=== PATIENT | male | born 1955 | race Caucasian/White ===

== ENCOUNTER 2020-07-21 14:21 | Observation (INO) ==
[2020-07-21] MEDS ORDERED: Morphine Sulfate 2 MG/ML SYRINGE IVP STA (14:52)
[2020-07-21] MEDS ORDERED: Isovue-370 500 ML BOTTLE IVP ONE (14:53)
[2020-07-21 15:37] LABS: Basophils # 0.1 K/mcL (0.0-0.2); Basophils % 0.4 %; Eosinophils % 0.1 %; Hematocrit 43.2 % (37.5-50.1); Hemoglobin 14.2 g/dL (12.9-16.9); Immature Granulocytes % 1.4 % (0-4); Lymphocytes # 0.4 K/mcL (0.6-4.6); Lymphocytes % 3.2 %; Mean Corpuscular HGB Conc 32.9 g/dL (31.6-35.5); Mean Corpuscular Hemoglobin 30.4 pg (28.0-33.3); Mean Corpuscular Volume 92.5 fL (83.0-100.0); Mean Platelet Volume 9.4 fL (9.4-12.4); Monocytes # 0.3 K/mcL (0.0-1.3); Monocytes % 1.8 %; Neutrophils # 12.7 K/mcL (1.6-8.9); Platelet Count 208 K/mcL (140-400); Red Blood Count 4.67 M/mcL (4.19-5.50); Red Cell Distribution Width 13.2 % (11.5-14.5); Segmented Neutrophils % 93.1 %; White Blood Count 13.7 K/mcL (4.3-11.1)
[2020-07-21 15:38] LABS: VBG Ionized Calcium 0.86 mmol/L (1.15-1.35)
[2020-07-21 15:40] LABS: INR 0.9; Prothrombin Time 10.7 Seconds (9.4-12.1)
[2020-07-21 15:49] LABS: Bilirubin,Urine Negative (Negative); Blood,Urine Negative (Negative); Clarity,Urine Clear (Clear); Color,Urine Colorless (Yellow); Glucose,Urine (UA) >=1000 mg/dL (Normal); Ketones,Urine Negative (Negative); Leukocyte Esterase,Urine Negative (Negative); Nitrite,Urine Negative (Negative); PH,Urine 6.5 pH Units (5.0-8.0); Protein,Urine Negative (Neg-Trace); RBC,Urine 0-3 per hpf (0-3); Specific Gravity,Urine 1.022 (1.010-1.025); Urobilinogen,Urine Normal (Normal); WBC,Urine 0-3 per hpf (0-3)
[2020-07-21 15:58] LABS: Troponin I < 0.03 ng/mL (< 0.04)
[2020-07-21 16:09] LABS: Thyroid Stimulating Hormone 0.856 mcIU/mL (0.340-5.600)
[2020-07-21 16:18] LABS: Alanine Aminotransferase 13 Units/L (7-52); Albumin 3.8 g/dL (3.5-5.7); Albumin/Globulin Ratio 1.5 (1.1-2.2); Alkaline Phosphatase 54 Units/L (34-104); Aspartate Amino Transferase 19 Units/L (13-39); BUN/Creatinine Ratio 20 (6-26); Bilirubin,Total 0.5 mg/dL (0.3-1.0); Blood Urea Nitrogen 19 mg/dL (8-23); Calcium 8.8 mg/dL (8.6-10.3); Carbon Dioxide 19 mEq/L (23-29); Chloride 97 mEq/L (98-107); Creatine Kinase 41 Units/L (30-223); Globulin 2.6 g/dL (2.4-3.5); Glucose 501 mg/dL (70-105); Magnesium 1.9 mg/dL (1.6-2.6); Osmolality,Calculated 291 (280-300); Phosphorous 2.6 mg/dL (2.7-4.5); Potassium 4.8 mEq/L (3.5-5.1); Sodium 128 mEq/L (136-145); Total Protein 6.4 g/dL (6.4-8.9); eGFR For African Americans > 60 (> 60); eGFR For Non-African Americans > 60 (> 60)
[2020-07-21] MEDS ORDERED: Insulin Regular, Human 100 UNIT/ML SUBQ ONE (16:20)
[2020-07-21] MEDS ORDERED: Aspirin 81 MG TAB.CHEW PO ONE (17:15)
[2020-07-21] MEDS: Calcium Gluconate 1gm/50mL 1 GM/50 ML BAG IVPB SCH ×2 (17:25→23:25)
[2020-07-21] MEDS ORDERED: Naloxone 0.4 MG/ML INJ IVP PRN (21:03)
[2020-07-21] MEDS ORDERED: Dextrose Gel 15 GM/37.5 ML TUBE PO PRN ×2 (21:03)
[2020-07-21] MEDS ORDERED: *HR* Dextrose 50 % in Water (Vial) 50 ML VIAL IVP PRN (21:03)
[2020-07-21] MEDS ORDERED: D5% in Water 1,000 ML IVC PRN (21:03)
[2020-07-21] MEDS ORDERED: Ondansetron 4 MG/2 ML VIAL IVP PRN (21:03)
[2020-07-21] MEDS ORDERED: Perflutren Lipid Microsphere 1.3 ML in 0.9 % Sodium Chloride 8.7 ML IVP PRN (21:50)
[2020-07-21] MEDS ORDERED: *HR* Heparin 5,000 UNIT/ML VIAL IVP ONE (22:22)
[2020-07-21] MEDS ORDERED: *HR* Heparin 5,000 UNIT/ML VIAL IVP PRN ×2 (22:22)
[2020-07-21] MEDS: rOPINIRole 1 MG TABLET PO SCH (22:42)
[2020-07-21] MEDS: Morphine Sulfate 2 MG/ML SYRINGE IVP PRN (22:45)
[2020-07-21] MEDS: 0.9 % Sodium Chloride 1,000 ML IVC SCH (22:46)
[2020-07-21] MEDS: Insulin LISPRO 300 UNITS/3 ML VIAL SUBQ SCH (22:52)
[2020-07-21 23:00] LABS: Activated Partial Thrombo Time 25.4 Seconds (26.0-36.0); Heparin anti-factor XA UFH < 0.04 IU/mL (0.30-0.70)
[2020-07-21] MEDS: Heparin 25,000UNIT/250ML 1/2NS 25,000 UNIT/250 ML IV.SOLN IVC SCH (23:01)
[2020-07-22] MEDS: Nicotine 14 MG PATCH.TD24 TD SCH ×2 (02:22→13:59)
[2020-07-22] MEDS: Insulin LISPRO 300 UNITS/3 ML VIAL SUBQ SCH ×4 (04:16→16:52)
[2020-07-22 05:16] LABS: Hematocrit 40.5 % (37.5-50.1); Hemoglobin 13.6 g/dL (12.9-16.9); Mean Corpuscular HGB Conc 33.6 g/dL (31.6-35.5); Mean Corpuscular Hemoglobin 30.6 pg (28.0-33.3); Mean Corpuscular Volume 91.2 fL (83.0-100.0); Mean Platelet Volume 9.4 fL (9.4-12.4); Platelet Count 231 K/mcL (140-400); Red Blood Count 4.44 M/mcL (4.19-5.50); Red Cell Distribution Width 13.3 % (11.5-14.5); White Blood Count 13.7 K/mcL (4.3-11.1)
[2020-07-22 05:29] LABS: Carbon Dioxide 29 mEq/L (23-29); Chloride 99 mEq/L (98-107); Glucose 208 mg/dL (70-105); Potassium 4.6 mEq/L (3.5-5.1); Sodium 133 mEq/L (136-145); eGFR For African Americans > 60 (> 60); eGFR For Non-African Americans > 60 (> 60)
[2020-07-22 05:38] LABS: BUN/Creatinine Ratio 20 (6-26); Blood Urea Nitrogen 19 mg/dL (8-23); Osmolality,Calculated 284 (280-300)
[2020-07-22] MEDS: Morphine Sulfate 2 MG/ML SYRINGE IVP PRN ×3 (06:15→20:21)
[2020-07-22] MEDS ORDERED: Isosorbide MONOnitrate (24 HR) 30 MG TAB.ER.24H PO SCH (09:00)
[2020-07-22] MEDS: rOPINIRole 1 MG TABLET PO SCH ×4 (10:14→20:22)
[2020-07-22] MEDS: Aspirin Enteric Coated 81 MG Tablet PO SCH (10:15)
[2020-07-22] MEDS: Metoprolol XL (24 HR) Succ 25 MG TAB.ER.24H PO SCH (10:15)
[2020-07-22] MEDS: 0.9 % Sodium Chloride 1,000 ML IVC SCH (12:14)
[2020-07-22] MEDS ORDERED: Isosorbide MONOnitrate (24 HR) 30 MG TAB.ER.24H PO ONE (14:54)
[2020-07-22] MEDS: Gabapentin 300 MG CAPSULE PO SCH (20:22)
[2020-07-22] MEDS: Ipratropium/Albuterol Neb 3 ML IH PRN (20:41)
[2020-07-23] MEDS: Heparin 25,000UNIT/250ML 1/2NS 25,000 UNIT/250 ML IV.SOLN IVC SCH (00:07)
[2020-07-23] MEDS: Morphine Sulfate 2 MG/ML SYRINGE IVP PRN (00:19)
[2020-07-23] MEDS: Ipratropium/Albuterol Neb 3 ML IH PRN (01:52)
[2020-07-23] MEDS: Nitroglycerin 0.4 MG TAB.SUBL SL PRN ×2 (05:13→05:23)
[2020-07-23 05:48] LABS: Basophils % 0.2 %; Eosinophils # 0.1 K/mcL (0.0-0.6); Eosinophils % 0.6 %; Hematocrit 40.5 % (37.5-50.1); Hemoglobin 13.3 g/dL (12.9-16.9); Immature Granulocytes % 0.8 % (0-4); Lymphocytes # 1.5 K/mcL (0.6-4.6); Lymphocytes % 11.4 %; Mean Corpuscular HGB Conc 32.8 g/dL (31.6-35.5); Mean Corpuscular Hemoglobin 30.4 pg (28.0-33.3); Mean Corpuscular Volume 92.7 fL (83.0-100.0); Mean Platelet Volume 9.5 fL (9.4-12.4); Monocytes # 0.7 K/mcL (0.0-1.3); Monocytes % 5.2 %; Platelet Count 225 K/mcL (140-400); Red Blood Count 4.37 M/mcL (4.19-5.50); Red Cell Distribution Width 13.3 % (11.5-14.5); Segmented Neutrophils % 81.8 %; White Blood Count 13.4 K/mcL (4.3-11.1)
[2020-07-23 06:42] LABS: BUN/Creatinine Ratio 22 (6-26); Blood Urea Nitrogen 21 mg/dL (8-23); Calcium 8.7 mg/dL (8.6-10.3); Carbon Dioxide 27 mEq/L (23-29); Chloride 102 mEq/L (98-107); Glucose 220 mg/dL (70-105); Osmolality,Calculated 290 (280-300); Potassium 4.4 mEq/L (3.5-5.1); Sodium 135 mEq/L (136-145); eGFR For African Americans > 60 (> 60); eGFR For Non-African Americans > 60 (> 60)
[2020-07-23] MEDS: Gabapentin 300 MG CAPSULE PO SCH ×3 (07:32→21:36)
[2020-07-23] MEDS: Isosorbide MONOnitrate (24 HR) 60 MG TAB.ER.24H PO SCH (07:32)
[2020-07-23] MEDS: Metoprolol XL (24 HR) Succ 25 MG TAB.ER.24H PO SCH (07:32)
[2020-07-23] MEDS: Cyanocobalamin (B-12) 1,000 MCG TABLET PO SCH (07:32)
[2020-07-23] MEDS: rOPINIRole 1 MG TABLET PO SCH ×4 (07:32→21:36)
[2020-07-23] MEDS: Aspirin Enteric Coated 81 MG Tablet PO SCH (07:32)
[2020-07-23] MEDS: Insulin LISPRO 300 UNITS/3 ML VIAL SUBQ SCH ×3 (07:32→16:16)
[2020-07-23] MEDS: lisinopriL 10 MG TABLET PO SCH (07:32)
[2020-07-23 11:09] LABS: Adenovirus Not Detected (Not Detect); Bordetella Pertussis Not Detected (Not Detect); Chlamydophila pneumoniae Not Detected (Not Detect); Coronavirus 229E Not Detected (Not Detect); Coronavirus HKU1 Not Detected (Not Detect); Coronavirus NL63 Not Detected (Not Detect); Coronavirus OC43 Not Detected (Not Detect); Human Metapneumovirus Not Detected (Not Detect); Human Rhinovirus/Enterovirus Not Detected (Not Detect); Influenza A Subtype 2009 H1 Not Detected (Not Detect); Influenza B Not Detected (Not Detect); Mycoplasma pneumoniae Not Detected (Not Detect); Parainfluenza Virus 1 Not Detected (Not Detect); Parainfluenza Virus 2 Not Detected (Not Detect); Parainfluenza Virus 3 Not Detected (Not Detect); Parainfluenza Virus 4 Not Detected (Not Detect); Respiratory Syncytial Virus Not Detected (Not Detect)
[2020-07-23] MEDS ORDERED: *HR* Enoxaparin 40 MG/0.4 ML SYRINGE SQ ONE (12:27)
[2020-07-23] MEDS: Nicotine 14 MG PATCH.TD24 TD SCH (12:58)
[2020-07-23] MEDS ORDERED: Insulin LISPRO 300 UNITS/3 ML VIAL SUBQ SCH (21:15)
[2020-07-24] MEDS ORDERED: *HR* Enoxaparin 40 MG/0.4 ML SYRINGE SQ SCH (06:00)
[2020-07-24] MEDS ORDERED: Regadenoson 0.4 MG/5 ML SYRINGE IVP ONE (06:24)
[2020-07-24] MEDS: Insulin LISPRO 300 UNITS/3 ML VIAL SUBQ SCH ×2 (09:17→11:22)
[2020-07-24] MEDS: Isosorbide MONOnitrate (24 HR) 60 MG TAB.ER.24H PO SCH (09:25)
[2020-07-24] MEDS: rOPINIRole 1 MG TABLET PO SCH (09:25)
[2020-07-24] MEDS: Metoprolol XL (24 HR) Succ 25 MG TAB.ER.24H PO SCH (09:25)
[2020-07-24] MEDS: lisinopriL 10 MG TABLET PO SCH (09:25)
[2020-07-24] MEDS: Gabapentin 300 MG CAPSULE PO SCH (09:25)
[2020-07-24] MEDS: Cyanocobalamin (B-12) 1,000 MCG TABLET PO SCH (09:25)
[2020-07-24] MEDS: Aspirin Enteric Coated 81 MG Tablet PO SCH (09:25)
[2020-07-24 10:53] VITALS: BP 157/86
== END 2020-07-24 15:18 | disposition home or self-care (01) ==
LOC: 3BNU 14:21 → EMEROOARM 14:21 → SUATTDRO 18:26 → 3BNU 19:39
PROVIDERS: ADMIT Student in an Organized Health Care Education/Training Program; ATTEND Internal Medicine